=== PATIENT | male | born 1995 | race Caucasian/White ===

== ENCOUNTER 2025-02-21 07:01 | Emergency (ER) | payer OTHER, SELFPAY ==
[2025-02-21] VITALS (7 sets, daily range): BP systolic 123–136; BP diastolic 72–85; PULSE 66–82; RESP 16–20; TEMP 36.6–37.2; O2SAT 97–100; BMI 34.8
--- NOTE | ~2025-02-21 | CT_ITS ---
CLINICAL HISTORY: severe upper abd pain CT abdomen and pelvis with contrast Comparison: None available Findings: The lung bases are clear. Liver and gallbladder are within normal limits. Spleen, pancreas, bilateral adrenal glands, and bilateral kidneys are within normal limits. No hydronephrosis or nephrolithiasis. No abdominal or pelvic free fluid. No retroperitoneal lymphadenopathy. Aorta is nonaneurysmal. Colonic diverticulosis without findings of diverticulitis no bowel obstruction, pneumoperitoneum, or pneumatosis. Appendix is normal. Bladder and prostate are within normal limits. No acute osseous abnormality. IMPRESSION: No acute intra-abdominal or pelvic findings. This document has been electronically signed by: Charanjit Skaggs MD on 02/21/2025 11:44:54
--- NOTE | ~2025-02-21 | US_ITS ---
CLINICAL HISTORY: RUQ tenderness --- Additional Notes or Special Instructions: GB and CBD pls US limited to the gallbladder Comparison: Same-day CT abdomen and pelvis Findings: Visualized segments of the liver reveal no gross focal lesions or ductal dilatation. Gallbladder reveals multifocal small nonmobile nonshadowing filling defects, likely small adherent sludge balls or less likely polyps. No wall thickening or pericholecystic fluid. Common bile duct measures 4 mm. Gallbladder appears unremarkable. No sonographic Castillo's sign. Impression: 1. Multiple small nonshadowing nonmobile gallbladder filling defects, likely tiny adherent sludge balls or less likely polyps. No shadowing stones or sonographic evidence of cholecystitis. This document has been electronically signed by: Prince Romero MD on 02/21/2025 13:56:06
[2025-02-21 07:52] LABS: MANUAL DIFF FLAG NO
--- NOTE | 2025-02-21 07:55 | PC.NURSE ---
20g IV access established to right AC. Labs drawn and sent for analysis, results pending. Awaiting ED provider evaluation. Patient is visibly uncomfortable, in hands/knees position to attempt to alleviate upper abdominal discomfort (epigastric) with nausea/vomiting. Still has gallbladder. Pt is alert/oriented, pleasant/cooperative. Care ongoing by this RN.
[2025-02-21 07:56] LABS: Hematocrit 43.1 % (42.0-52.0); Hemoglobin 14.7 g/dl (14.0-18.0); Imm Gran Abs Auto 0.04 X10*3/uL (0.00-0.03); Imm Gran Pct Auto 0.4 % (0.0-0.4); Lymphocytes Absolute Auto 2.1 X10*3/uL (1.2-4.9); Mean Corpuscular HGB Conc 34.1 g/dl (31.0-36.0); Mean Corpuscular Hemoglobin 29.1 pg (27.0-33.0); Mean Corpuscular Volume 85.2 fL (80.0-98.0); NRBC Abs Auto 0.000 X10*3/uL (0.0-0.012); NRBC Pct Auto 0.0 /100WBC (0.0-0.2); Platelet Count 242 X10*3/uL (160-400); Red Blood Count 5.06 X10*6/uL (4.60-5.80); White Blood Count 11.3 X10*3/uL (4.8-10.8)
[2025-02-21 08:18] LABS: Alanine Aminotransferase 38 U/L (0-40); Albumin Level 4.7 g/dL (3.5-5.0); Alkaline Phosphatase 79 U/L (39-117); Aspartate Amino Transferase 42 U/L (5-37); Lipase 20 U/L (8-78); Total Protein 7.7 g/dL (6.5-8.0)
[2025-02-21 08:38] LABS: Albumin Level 4.7 g/dL (3.5-5.0); Alkaline Phosphatase 78 U/L (39-117); Anion Gap 14 (12-20); Aspartate Amino Transferase 40 U/L (5-37); Blood Urea Nitrogen 17 mg/dL (9-16); Calcium 9.5 mg/dL (8.4-10.2); Carbon Dioxide 25 mmol/L (22-29); Chloride 105 mmol/L (96-108); Creatinine Clr Calc Pharmacy 127.1; Estimated Glomerular Filt Rate > 60; Potassium 3.7 mmol/L (3.3-5.1); Sodium 140 mmol/L (135-145); Total Protein 7.9 g/dL (6.5-8.0)
--- NOTE | 2025-02-21 08:46 | ED_ITS ---
HPI - General Adult General Chief complaint: Abdominal Pain Stated complaint: Abdominal Pain Time Seen by Provider: 02/21/25 08:01 Source: patient, RN notes reviewed and old records reviewed Mode of arrival: ambulatory Limitations: no limitations History of Present Illness ED Provider: Mc KAY narrative: Patient is a 29-year-old male with history of hypothyroidism presenting to the emergency department with complaint of sudden onset upper/epigastric abdominal pain, nausea and vomiting which began around 430 this morning. Reports similar episode last week which lasted around 6 hours and spontaneously resolved. Denies fever. Reports emesis was nonbloody, nonbilious. Denies diarrhea. Appears very uncomfortable and was on his knees in exam room. Denies history of prior abdominal surgeries. Denies any drug or alcohol use. MD complaint: abdominal pain, nausea, vomiting Onset (ago): hour(s) Related Data Previous Rx's ?Medication ?Instructions ?Recorded ondansetron 4 mg disintegrating 4 mg PO Q8H PRN nausea and 02/21/25 tablet vomiting #10 tabs Allergies Allergy/AdvReac Type Severity Reaction Status Date / Time No Known Allergies Allergy Verified 02/21/25 07:07 Review of Systems 2 Review of Systems: As per HPI Yes all other systems are reviewed and are negative Constitutional: Constitutional: Reports as per HPI PMFSH Social History Social History Advance Directives: No Advance Directives Information Provided: Yes Do you have a plan to hurt others: No Plan Physical Exam ED Vital Signs: Vital Signs - 24 hr 02/21/25 07:05 02/21/25 08:00 02/21/25 08:27 Temperature 98.3 F 99.0 F Pulse Rate 78 66 Respiratory Rate 18 18 20 Blood Pressure 136/81 128/85 Pulse Oximetry 100 100 Oxygen Delivery Method Room Air Room Air 02/21/25 09:13 02/21/25 10:00 02/21/25 11:12 Temperature 97.8 F Pulse Rate 73 Respiratory Rate 20 18 16 Blood Pressure 123/78 Pulse Oximetry 97 Oxygen Delivery Method Room Air BMI result Body Mass Index 34.8 Vital signs have been reviewed and appear to be correct. Blood pressure normal. Heart rate normal. Respiratory rate normal. Temperature normal. Oxygen saturation normal. Const General: cooperative, healthy appearing and other (appears very uncomfortable, kneeling on floor with arms on bed in exam room) Nutritional Appearance: average body habitus Orientation/consciousness: oriented to person, oriented to place, oriented to time and patient oriented x3 Limitations: no limitations HENMT Head: Yes normocephalic and Yes atraumatic Ears: external ears normal General nose exam: Normal external nose present Face and sinus: Yes face symmetric Mouth: oropharynx normal and moist mucous membranes Throat: Yes uvula midline Eyes Pupils: Equal, round and reactive pupils present Neck Neck: Yes normal visual inspection and Yes supple Resp Effort & Inspection: normal respiratory effort and able to speak in complete sentences Auscultation: clear to auscultation bilaterally Cardio Rate: regular rate Rhythm: regular rhythm Heart sounds: S1 normal heart sound present and S2 normal heart sound present GI Palpation (GI): Soft to palpation, nontender, no guarding and No Rebound tenderness present Auscultation: normoactive bowel sounds General: Yes no CVA tenderness Back/Spine/Pelvis Back: no CVA tenderness Skin General skin exam: elasticity normal and turgor normal Neuro General: oriented to person, oriented to place, oriented to time, patient oriented x3, moves all extremities, no focal motor deficits and CN's II-XI intact bilaterally Cranial nerves: Yes Equal, round and reactive pupils present Cognition (Neuro): normal cognition Extrem General: Yes full ROM, Yes no pedal edema and Yes no calf tenderness Psych Mental Status: mental status grossly normal Affect: normal affect Thought process: Normal thought process present Medications Administered Discontinued Medications Generic Name Dose Route Start Last Admin Trade Name Leobardoq PRN Reason Stop Dose Admin Hydromorphone HCl 1 mg 02/21/25 08:52 02/21/25 09:13 Hydromorphone Hcl 1 Mg/Ml Syringe IVPUSH 02/21/25 08:53 1 mg ONCE ONE Administration Protocol Hydromorphone HCl 0.5 mg 02/21/25 11:06 02/21/25 11:12 Hydromorphone Hcl 0.5 Mg/0.5 Ml Syringe IVPUSH 02/21/25 11:07 0.5 mg ONCE ONE Administration Protocol Sodium Chloride 1,000 mls @ 999 mls/hr 02/21/25 08:15 02/21/25 09:30 Ns IV 02/21/25 09:15 Infused .Q1H1M JUAN ALBERTO Infusion Iohexol 85 ml 02/21/25 09:40 02/21/25 09:40 Iohexol 350 Mg/Ml 100 Ml Infus..Btl IV 02/21/25 09:41 85 ml ONCE ONE Administration Morphine Sulfate 4 mg 02/21/25 08:13 02/21/25 08:27 Morphine Sulfate 4 Mg/Ml Cartridge IVPUSH 02/21/25 08:14 4 mg ONCE ONE Administration Protocol Ondansetron HCl 4 mg 02/21/25 08:13 02/21/25 08:28 Ondansetron Hcl 4 Mg/2 Ml Vial IVPUSH 02/21/25 08:14 4 mg ONCE ONE Administration Medical Decision Making Medical Decision Making [facility] Narrative: Patient is a 29-year-old male with history of hypothyroidism presenting to the emergency department with complaint of sudden onset upper abdominal pain, nausea and vomiting which began around 430 this morning. On exam patient is awake, A+Ox3, VS WNL, afebrile, normal neurological exam without focal deficits, physical exam findings as above. Given reported symptoms and physical exam findings, initial differential includes but is not limited to cholecystitis, choledocolithiasis, pancreatitis, gastritis, PUD, GERD. Labs notable for mild leukocytosis, otherwise unremarkable. Patient initially medicated with morphine but denies any relief of pain from this. Will treat with Dilaudid. Patient reports significant relief of pain from Dilaudid, but short time later reports pain has returned, rates it 5/10. Will order additional dose of Dilaudid. CT A/P Is without any acute intra-abdominal findings. Right upper quadrant ultrasound notable for multiple small non shadowing nonmobile gallbladder filling defects, likely sludge balls. My interpretation is in agreement with the radiologist's interpretation. results discussed with patient and all questions answered. Patient reports pain has fully resolved for medication while in the ED. Will refer to General surgery for follow-up. Return precautions discussed at bedside. Will send prescription for Zofran for nausea. Patient verbalized understanding of and agreement with plan. Differential Diagnosis Differential Diagnoses: The differential diagnosis associated with the presentation includes as per [facility] Admission/Observation Consideration of admission/observation: Escalation of care including admission/observation considered Patient would have been admitted to the hospital and transferred to appropriate facility had their clinical presentation warranted hospital admission. Lab Data [facility] Lab Attestation statement: I reviewed the patient's lab results. as per [facility] 02/21/25 07:48 02/21/25 07:48 Labs: Lab Results 02/21/25 02/21/25 02/21/25 Range/Units 07:48 07:48 07:48 WBC 11.3 H (4.8-10.8) X10*3/uL RBC 5.06 (4.60-5.80) X10*6/uL Hgb 14.7 (14.0-18.0) g/dl Hct 43.1 (42.0-52.0) % MCV 85.2 (80.0-98.0) fL MCH 29.1 (27.0-33.0) pg MCHC 34.1 (31.0-36.0) g/dl RDW 12.7 (11.0-16.0) % Plt Count 242 (160-400) X10*3/uL MPV 10.7 (9.4-12.4) fL Immature Gran % (Auto) 0.4 (0.0-0.4) % Neut % (Auto) 71.7 (45-73) % Lymph % (Auto) 18.3 L (20-40) % [place] % (Auto) 6.4 (2-11) % Eos % (Auto) 2.5 (0-4) % Baso % (Auto) 0.7 (0-2) % Lymph # (Auto) 2.1 (1.2-4.9) X10*3/uL [place] # (Auto) 0.7 (0.1-1.2) X10*3/uL Eos # (Auto) 0.3 (0.0-0.4) X10*3/uL Baso # (Auto) 0.1 (0.0-0.2) X10*3/uL Abs Immat Gran (auto) 0.04 H (0.00-0.03) X10*3/uL Absolute Neuts (auto) 8.1 (2.0-8.3) x10*3/uL Absolute Nucleated RBC 0.000 (0.0-0.012) X10*3/uL Nucleated RBC % (auto) 0.0 (0.0-0.2) /100WBC Sodium 140 (135-145) mmol/L Potassium 3.7 (3.3-5.1) mmol/L Chloride 105 (96-108) mmol/L Carbon Dioxide 25 (22-29) mmol/L Anion Gap 14 (12-20) BUN 17 H (9-16) mg/dL Creatinine 1.14 (0.5-1.4) mg/dL Estim Creat Clear Calc 127.1 Estimated GFR > 60 Random Glucose 117 H (60-115) mg/dL Calcium 9.5 (8.4-10.2) mg/dL Total Bilirubin 0.3 0.3 (0.0-1.0) mg/dL Direct Bilirubin 0.1 (0.0-0.5) mg/dL AST 40 H 42 H (5-37) U/L ALT 37 (0-40) U/L Alkaline Phosphatase (39-117) U/L Total Protein (6.5-8.0) g/dL Albumin (3.5-5.0) g/dL Lipase (8-78) U/L 02/21/25 02/21/25 02/21/25 Range/Units 07:48 07:48 07:48 WBC (4.8-10.8) X10*3/uL RBC (4.60-5.80) X10*6/uL Hgb (14.0-18.0) g/dl Hct (42.0-52.0) % MCV (80.0-98.0) fL MCH (27.0-33.0) pg MCHC (31.0-36.0) g/dl RDW (11.0-16.0) % Plt Count (160-400) X10*3/uL MPV (9.4-12.4) fL Immature Gran % (Auto) (0.0-0.4) % Neut % (Auto) (45-73) % Lymph % (Auto) (20-40) % [place] % (Auto) (2-11) % Eos % (Auto) (0-4) % Baso % (Auto) (0-2) % Lymph # (Auto) (1.2-4.9) X10*3/uL [place] # (Auto) (0.1-1.2) X10*3/uL Eos # (Auto) (0.0-0.4) X10*3/uL Baso # (Auto) (0.0-0.2) X10*3/uL Abs Immat Gran (auto) (0.00-0.03) X10*3/uL Absolute Neuts (auto) (2.0-8.3) x10*3/uL Absolute Nucleated RBC (0.0-0.012) X10*3/uL Nucleated RBC % (auto) (0.0-0.2) /100WBC Sodium (135-145) mmol/L Potassium (3.3-5.1) mmol/L Chloride (96-108) mmol/L Carbon Dioxide (22-29) mmol/L Anion Gap (12-20) BUN (9-16) mg/dL Creatinine (0.5-1.4) mg/dL Estim Creat Clear Calc Estimated GFR Random Glucose (60-115) mg/dL Calcium (8.4-10.2) mg/dL Total Bilirubin (0.0-1.0) mg/dL Direct Bilirubin (0.0-0.5) mg/dL AST (5-37) U/L ALT 38 (0-40) U/L Alkaline Phosphatase 78 79 (39-117) U/L Total Protein 7.9 7.7 (6.5-8.0) g/dL Albumin 4.7 (3.5-5.0) g/dL Lipase (8-78) U/L 02/21/25 Range/Units 07:48 WBC (4.8-10.8) X10*3/uL RBC (4.60-5.80) X10*6/uL Hgb (14.0-18.0) g/dl Hct (42.0-52.0) % MCV (80.0-98.0) fL MCH (27.0-33.0) pg MCHC (31.0-36.0) g/dl RDW (11.0-16.0) % Plt Count (160-400) X10*3/uL MPV (9.4-12.4) fL Immature Gran % (Auto) (0.0-0.4) % Neut % (Auto) (45-73) % Lymph % (Auto) (20-40) % [place] % (Auto) (2-11) % Eos % (Auto) (0-4) % Baso % (Auto) (0-2) % Lymph # (Auto) (1.2-4.9) X10*3/uL [place] # (Auto) (0.1-1.2) X10*3/uL Eos # (Auto) (0.0-0.4) X10*3/uL Baso # (Auto) (0.0-0.2) X10*3/uL Abs Immat Gran (auto) (0.00-0.03) X10*3/uL Absolute Neuts (auto) (2.0-8.3) x10*3/uL Absolute Nucleated RBC (0.0-0.012) X10*3/uL Nucleated RBC % (auto) (0.0-0.2) /100WBC Sodium (135-145) mmol/L Potassium (3.3-5.1) mmol/L Chloride (96-108) mmol/L Carbon Dioxide (22-29) mmol/L Anion Gap (12-20) BUN (9-16) mg/dL Creatinine (0.5-1.4) mg/dL Estim Creat Clear Calc Estimated GFR Random Glucose (60-115) mg/dL Calcium (8.4-10.2) mg/dL Total Bilirubin (0.0-1.0) mg/dL Direct Bilirubin (0.0-0.5) mg/dL AST (5-37) U/L ALT (0-40) U/L Alkaline Phosphatase (39-117) U/L Total Protein (6.5-8.0) g/dL Albumin 4.7 (3.5-5.0) g/dL Lipase 20 (8-78) U/L Independent Interpretation I performed an independent interpretation of an: Ultrasound and CT Scan Interpretation: CT A/P Is without any acute intra-abdominal findings. Right upper quadrant ultrasound notable for multiple small non shadowing nonmobile gallbladder filling defects, likely sludge balls. Radiology Impression Discussion of test interpretation with radiology: I have reviewed the radiologist's reading. Radiologist Impression: US limited to the gallbladder Comparison: Same-day CT abdomen and pelvis Findings: Visualized segments of the liver reveal no gross focal lesions or ductal dilatation. Gallbladder reveals multifocal small nonmobile nonshadowing filling defects, likely small adherent sludge balls or less likely polyps. No wall thickening or pericholecystic fluid. Common bile duct measures 4 mm. Gallbladder appears unremarkable. No sonographic Castillo's sign. Impression: 1. Multiple small nonshadowing nonmobile gallbladder filling defects, likely tiny adherent sludge balls or less likely polyps. No shadowing stones or sonographic evidence of cholecystitis. CT abdomen and pelvis with contrast Comparison: None available Findings: The lung bases are clear. Liver and gallbladder are within normal limits. Spleen, pancreas, bilateral adrenal glands, and bilateral kidneys are within normal limits. No hydronephrosis or nephrolithiasis. No abdominal or pelvic free fluid. No retroperitoneal lymphadenopathy. Aorta is nonaneurysmal. Colonic diverticulosis without findings of diverticulitis no bowel obstruction, pneumoperitoneum, or pneumatosis. Appendix is normal. Bladder and prostate are within normal limits. No acute osseous abnormality. IMPRESSION: No acute intra-abdominal or pelvic findings. External Record Review External record reviewed: Inpatient record, Office record and Outpatient record Prescription Management I considered prescription management with: Other Critical Care Time Critical Care Time Critical Care Time: Yes Total Critical Care Time: 49 Attestation: I have personally provided critical care time exclusive of time spent on separately billable procedures. Time includes review of lab data, radiology results, discussion with consultants, and monitoring for potential decompensation. Intervention performed as documented. Discharge Plan Discharge Clinical Impression: Abdominal pain Patient Disposition: Home, Self-Care Instructions: HIDA Scan (DC), Abdominal Pain (ED) Additional Instructions: You were evaluated in the emergency department today for abdominal pain. Your ultrasound showed multiple small nonshadowing nonmobile gallbladder filling defects, likely tiny sludge balls. We recommend that you follow up with general surgery for further evaluation and management of your symptoms. You are being prescribed ondansetron which you can use every 8 hours as needed for nausea and vomiting. You should avoid alcohol, spicy, greasy and fatty foods. Return to the emergency department if you develop worsening pain, persistent vomiting, fever 100.4? F or greater or any other new or concerning symptoms. Prescriptions: New ondansetron 4 mg tablet,disintegrating 4 mg PO Q8H PRN (Reason: nausea and vomiting) Qty: 10 0RF Referrals: [facility] [place] General Surgeons [Provider Group, General Surgery] - 1 week Referral Note: US limited to the gallbladder Comparison: Same-day CT abdomen and pelvis Findings: Visualized segments of the liver reveal no gross focal lesions or ductal dilatation. Gallbladder reveals multifocal small nonmobile nonshadowing filling defects, likely small adherent sludge balls or less likely polyps. No wall thickening or pericholecystic fluid. Common bile duct measures 4 mm. Gallbladder appears unremarkable. No sonographic Castillo's sign. Impression: 1. Multiple small nonshadowing nonmobile gallbladder filling defects, likely tiny adherent sludge balls or less likely polyps. No shadowing stones or sonographic evidence of cholecystitis. Clinical Impression: Abdominal pain Print Language: Sami
[2025-02-21 08:59] LABS: Alanine Aminotransferase 37 U/L (0-40)
[2025-02-21] MEDS: iohexoL 350 MG/ML 100 ML INFUS..BTL 85 ML IV (09:40)
--- NOTE | 2025-02-21 12:26 | PC.NURSE ---
CT scan results unremarkable, plan for ultrasound to rule out gallstones. Care ongoing by this RN.
== END 2025-02-21 15:30 | disposition home or self-care (01) ==
PROVIDERS: Emergency Provider Emergency Medicine
DX: R10.13 Epigastric pain (principal); R11.2 Nausea with vomiting, unspecified; R93.2 Abnormal findings on diagnostic imaging of liver and biliary tract
CPT/HCPCS: 36415; 74177; 76705; 80053; 80076; 82248; 83690; 85025; 96361; 96374; 96375; 96376; 99284; 99285; J1171; J2270; J2405; Q9967

== ENCOUNTER → 2025-02-21 09:30 | Outpatient (BNV) | payer OTHER, SELFPAY | PROVIDERS: Emergency Provider Emergency Medicine; Visit Provider Radiology Vascular & Interventional Radiology | DX: R10.10 Upper abdominal pain, unspecified (principal); R10.811 Right upper quadrant abdominal tenderness | CPT/HCPCS: 74177; 76705 ==